=== PATIENT | male | born 1995 | race Caucasian/White ===

== ENCOUNTER 2018-01-22 23:50 | Emergency (ER) | payer MEDICAID, SELFPAY ==
--- NOTE | 2018-01-22 23:50 | DT_ITS ---
This patient was seen during an EMR downtime January 16, 2018 - January 23, 2018. This patient may have a combination of paper and electronic documentation or all paper documentation. All documentation is viewable within the e-chart portion of [facility] [employer] [facility] for each patient visit.
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
== END 2018-01-23 03:11 | disposition home or self-care (01) ==
PROVIDERS: Emergency Provider Emergency Medicine; Family Provider Family Medicine; PCP Family Medicine
DX: S00.11XA Contusion of right eyelid and periocular area, initial encounter (principal); S60.222A Contusion of left hand, initial encounter; R40.2410 Glasgow coma scale score 13-15, unspecified time; W50.0XXA Accidental hit or strike by another person, initial encounter; Y93.89 Activity, other specified; Y92.9 Unspecified place or not applicable; F32.9 Major depressive disorder, single episode, unspecified; R01.1 Cardiac murmur, unspecified; F98.8 Other specified behavioral and emotional disorders with onset usually occurring in childhood and adolescence; F84.0 Autistic disorder; F31.9 Bipolar disorder, unspecified; Z79.899 Other long term (current) drug therapy; Z72.0 Tobacco use
CPT/HCPCS: 70450; 70486; 73130; 99284

== ENCOUNTER 2018-05-08 10:54 | Emergency (ER) | payer MEDICAID, SELFPAY ==
[2018-05-08 10:55] VITALS: BP 142/92; PULSE 88; RESP 12; TEMP 36.6; O2SAT 100; BMI 25.8
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
[2018-05-08] MEDS: Naproxen 500 MG Tablet PO (11:21)
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
[2018-05-08 12:19] VITALS: BP 127/70; PULSE 68; RESP 16; O2SAT 100
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
== END 2018-05-08 13:11 | disposition home or self-care (01) ==
PROVIDERS: Emergency Provider Emergency Medicine; Family Provider Family Medicine; PCP Family Medicine
DX: M62.830 Muscle spasm of back (principal); W19.XXXA Unspecified fall, initial encounter; F31.9 Bipolar disorder, unspecified; Z72.0 Tobacco use
CPT/HCPCS: 72040; 72070; 99283

== ENCOUNTER 2018-05-22 14:00 | Emergency (ER) | payer MEDICAID, SELFPAY ==
[2018-05-22 14:01] VITALS: BP 111/73; PULSE 75; RESP 18; TEMP 36.6; O2SAT 100; BMI 25.0
--- NOTE | 2018-05-22 15:30 | ED.DCSUM_ITS ---
- ER Visit Summary Date of Service: 05/22/18 Chief Complaint: [Soft tissue swelling right scalp] History of Present Illness: The patient is a 22 M [to the emergency department complaint of a soft tissue swelling to the right side of his scalp that he has had for many years. Patient states that feels like may be the swelling is gotten larger recently and last night attempted to drain it while using a razor blade. Patient states that he only got a small amount of blood from it but no purulent drainage. Patient also states that over last couple weeks he has had increasing headaches off and on. Patient not sure if the lump has anything to do with the headaches. Patient denies any head trauma. He denies any recent illness. Patient has not had any fevers.] Physical Examination: [HEENT-PERRLA, EOMI. Cranial nerves II through XII grossly intact. TMs clear. Mucous membranes moist. No adenopathy. Right parietal scalp there is a 1 cm cystic lesion that is freely movable within the scalp. Area slightly tender to palpation. Minimal erythema. There is some dry blood noted to the area where patient attempted incision and drainage. Cardiovascular-regular rate and rhythm without murmur or ectopy Lungs-clear to auscultation, chest wall stable without crepitus or subcu emphysema Abdomen-normoactive bowel sounds, soft, nontender, no rebound or rigidity, no peritoneal signs. Extremities-intact ?4, normal range of motion, normal pulses, atraumatic] Test Results: [None indicated] Emergency Department Course and Treatment: [I discussed possible treatment options with patient including further attempted I&D although I suspect that this is a sebaceous cyst and may recur. The other option would be to place patient on antibiotic and have him follow-up with a surgeon to have complete excision. This point patient is comfortable with antibiotic and follow-up with general surgeon. I feel this is a reasonable option especially since patient has not been able to get any drainage from the wound and it is small at this time.] Treatment Plan: Patient was started on Keflex. [] Disposition: [Discharge to home in stable condition.] Impression: Sebaceous cyst right scalp [] This note was generated with [email or web address] dictation software. It may contain incorrect words, spelling, and punctuation that were not noted in review of the chart prior to signing ED Disposition - Plan for ED Patient: Chief Complaint: Abscess Referrals: Antonio Fuchs MD [Primary Care Provider] -
--- NOTE | 2018-05-22 15:30 | ED.DEP ---
ED Disposition - Plan for ED Patient: Chief Complaint: Abscess Instructions: ED Cyst Sebaceous Infec Abx Tx Prescriptions: Cephalexin [Keflex] 500 mg PO Q6 #40 cap Referrals: Antonio Fuchs MD [Primary Care Provider] - Melvin Valverde MD [STAFF PHYSICIAN] - 3-5 Days
[2018-05-22 15:41] VITALS: BP 108/74; PULSE 66; RESP 15; O2SAT 99
[2018-05-22] MEDS: Cephalexin 250 MG Capsule 500 MG PO (15:41)
== END 2018-05-22 15:42 | disposition home or self-care (01) ==
LOC: ED 15:38
PROVIDERS: Emergency Provider Emergency Medicine; Family Provider Family Medicine; PCP Family Medicine
DX: L72.3 Sebaceous cyst (principal); F12.90 Cannabis use, unspecified, uncomplicated
CPT/HCPCS: 99283

== ENCOUNTER 2018-07-11 08:48 | Day surgery (SDC) | payer MEDICAID, SELFPAY ==
--- NOTE | 2018-07-10 23:32 | PCM.HP.BLA ---
History and Physical Date of Admission: 07/11/18 HISTORY OF PRESENT ILLNESS 22 year old man presents with a soft tissue mass right parietal scalp that had been increasing in size over the last couple of months. This increase in size has been causing him some pain. He denies any fever. He denies any trauma. He recently went to the ED on 05/22/18 because of increasing pain after trying to incise this mass at home with a razor blade. He was placed on Keflex. He presents today for further evaluation and treatment. PAST MEDICAL HISTORY Anxiety and depression (Acute) Back problem (Acute) Frequent headaches (Acute) GERD (gastroesophageal reflux disease) (Acute) PAST SURGICAL HISTORY History of appendectomy (Acute) ALLERGIES No Known Allergies Allergy (Verified 05/31/18 16:28) MEDICATIONS Cyclobenzaprine [Flexeril] 10 mg PO TID PRN #20 tab 05/08/18 [Rx Confirmed 05/22/18] Naproxen [Naprosyn] 500 mg PO BID PRN PRN #20 tab 05/08/18 [Rx Confirmed 05/22/18] Sertraline HCl [Zoloft] 100 mg PO DAILY 05/08/18 [History Confirmed 05/22/18] Cephalexin [Keflex] 500 mg PO Q6 #40 cap 05/22/18 [Rx] FAMILY HISTORY Mother Anxiety and depression Grandmother Cancer Father Depression (emotion) Sister Diabetes SOCIAL HISTORY Smoking Status: Never smoker alcohol intake: never substance use type: does not use additional social history: DOES NOT USE ASPIRIN DOES NOT USE IBUPROFEN REVIEW OF SYSTEMS General - Denies fever, fatigue, and weight loss. Eyes - Denies cataracts and glaucoma. ENT - Denies nasal congestion and sore throat. Endocrine - Denies excessive thirst and urination. Skin - Denies skin cancer. Has painful soft tissue mass right parietal scalp. Musculoskeletal - Denies joint pain and arthritis. Has joint stiffness, weakness of muscles and joints, and back pain. Neuro - Denies headaches. Cardiovascular - Denies chest pain, fatigue, and shortness of breath with exertion. Psych - Denies anxiety. Has depression. Respiratory - Denies chronic cough and shortness of breath. Gastrointestinal - Denies nausea, vomiting, diarrhea, and constipation. Hematologic - Denies abnormal bruising and bleeding. Genitourinary - Denies hematuria and urinary frequency. PHYSICAL EXAMINATION General - Alert and Oriented HEENT - PERRL. EOMI. Throat is clear. On the right parietal scalp is a soft tissue mass that measures 12 mm. Mobile. Slight tenderness to palpation. No evidence of infection. Slight alopecia present. Neck - Supple and nontender. No cervical adenopathy. No suspicious lesions noted. Lungs - Clear to auscultation. Heart - Regular rate and rhythm. Abdomen - Soft and nondistended. Extremities - FROM. No axillary adenopathy. Radial pulses are palpable. No suspicious lesions noted. Neuro - CN II-XII grossly intact. Psych - Normal mood and affect. ASSESSMENT 12 mm painful soft tissue mass right parietal scalp. PLAN Continue the Keflex antibiotics until finished. Recommend excision of this soft tissue mass and send it to Pathology for analysis to rule out carcinoma. If carcinoma is present then further resection will be done with scalp skin flap or skin graft reconstruction. If the lesion appears cystic in nature and if it is adherent to the overlying scalp skin and extra scalp skin is excised, then reconstruction will be with a scalp skin flap or skin graft reconstruction. Surgery will be done under local anesthesia and IV sedation on an outpatient basis. Patient was informed of the risks and complications of the procedure including alternatives to surgery. These were discussed with the patient personally. Patient voices understanding and wishes to proceed. Some of the risks and complications were included in a form from the [employer].
[2018-07-11 09:13] VITALS: BP 133/90; PULSE 73; RESP 16; TEMP 36.4; O2SAT 100; BMI 23.8
--- NOTE | 2018-07-11 10:25 | MASS_PTH ---
PATIENT: NEELIMA LYNNE LOC: [facility] [place] U#:[id number] AGE/SX: 22/M ROOM: RE07/11/[address]: Dr. Melvin Valverde MD : 1995 BED: DIS: 07/11/2018 SPEC #: [id number] RECD: 07/11/18 16:03 STATUS: TERRIE HANNAH #: [id number] [place]: 07/11/18 10:[address]: Melvin Valverde DEPT: SURGICAL PATHOLOGY RECD BY: Paulina Bruce ENTERED: 07/12/18 11:07 SP TYPE: Mass OTHR DR: Dr. Antonio Fuchs MD Tissues: Scalp, NOS Procedures: Surgery Specimen Level III HEADER OPERATION: Excision, 12mm painful soft tissue mass right parietal scalp PRE-OP DIAGNOSIS: Painful soft tissue mass, 12mm, right parietal scalp TISSUE SUBMITTED: Soft tissue mass, right parietal scalp MICROSCOPIC DIAGNOSIS Soft tissue mass, right scalp, excisional biopsy: Trichilemmal cyst with focal calcification. SHANTELLE:reno 07/13/18 MICROSCOPIC DESCRIPTION Slides are reviewed. GROSS DESCRIPTION Received in fixative is one container labeled with the patient's name and designated painful soft tissue mass right parietal scalp. The specimen consists of a piece of levine-white skin with underlying tissue measuring 1.2 x 0.4 cm and up to 0.6 cm in thickness. The specimen is inked, serially sectioned and submitted entirely in one cassette. / SHANTELLE:reno 07/12/18 TC:5 CPT: 44632
[2018-07-11] MEDS: Mupirocin Ointment 22gm Tube 1 APPLIC (12:25)
--- NOTE | 2018-07-11 12:27 | PCM.IMDPSTOP ---
Immediate Post-Op Note Date of Procedure: 07/11/18 Primary Surgeon/Physician: Melvin Valverde mobile application tester: None Pre-Operative Diagnosis: 12 mm painful soft tissue mass right parietal scalp. Post-Operative Diagnosis: Same. Surgery/Procedure Performed:: Excision 12 mm painful soft tissue mass right parietal scalp with 1.2 cm layered closure. Description of Surgical Findings:: 22 year old man presents with a soft tissue mass right parietal scalp that had been increasing in size over the last couple of months. This increase in size has been causing him some pain. He denies any fever. He denies any trauma. He recently went to the ED on 05/22/18 because of increasing pain after trying to incise this mass at home with a razor blade. He was placed on Keflex. Today the patient underwent excision 12 mm painful soft tissue mass right parietal scalp with 1.2 cm layered closure. Estimated Blood Loss: 5 ml. Specimen's removed: Painful soft tissue mass right parietal scalp to Pathology. Drains: None. Type of Anesthesia:: Local MAC - xylocaine with epinephrine. - Admit VTE Documentation VTE Present on Admission: No VTE Mechan Device Prophylaxis: SCD's VTE Pharm Prophylaxis ordered?: No
--- NOTE | 2018-07-11 12:33 | PCM.DC ---
You will use the following diet at home:: No restrictions Discharge Activity: May not drive while taking narcotic pain medications., - - keep head elevated. no heavy lifting. May shower in (days): 2 May resume sexual activity in: No Restrictions Weight Bearing Status: Weight bearing as tolerated Lifting Restrictions: 20 lbs. Keep extremity elevated above heart level: - - elevate head. Call your doctor if your incision/area has: Continuous Slow Oozing, Sudden Increased Bleeding, Increased Pain/ Swelling, Increased Redness, Foul Smelling Discharge, Swelling at the incision site Call your doctor if you observe: Fever of 101 or Higher, Coldness, Increased Pain, Shortness of breath, Chest pain, Calf discomfort, Uncontrolled pain Suture Line Care: - - apply antibiotic ointment to suture line daily. Allergies/Adverse Reactions: Allergies No Known Allergies Allergy (Verified 07/04/18 10:26) Medications to take at Discharge Sertraline HCl [Zoloft] 100 mg PO DAILY 05/08/18 Clindamycin HCl [Cleocin HCl] 300 mg PO TID #15 cap 07/11/18 Oxycodone HCl/Acetaminophen [Percocet 5/325] 1 tab PO 4X/DAY PRN PRN 4 Days #15 tab 07/11/18 The following prescriptions were given: Oxycodone HCl/Acetaminophen [Percocet 5/325] 1 tab PO 4X/DAY PRN PRN 4 Days #15 tab PRN Reason: Pain Clindamycin HCl [Cleocin HCl] 300 mg PO TID #15 cap Primary Care Physician: Antonio Fuchs MD [Primary Care Provider] - Test Results: Test results from this visit will be discussed in further detail at your follow-up appointment, if applicable. Please Follow Up With: Melvin Valverde MD When: one week. call [phone] for appt. Proposed Discharge Date: 07/11/18
--- NOTE | 2018-07-11 12:36 | DCINST_ITS ---
You will use the following diet at home:: No restrictions Discharge Activity: May not drive while taking narcotic pain medications., - - keep head elevated. no heavy lifting. May shower in (days): 2 May resume sexual activity in: No Restrictions Weight Bearing Status: Weight bearing as tolerated Lifting Restrictions: 20 lbs. Keep extremity elevated above heart level: - - elevate head. Call your doctor if your incision/area has: Continuous Slow Oozing, Sudden Increased Bleeding, Increased Pain/ Swelling, Increased Redness, Foul Smelling Discharge, Swelling at the incision site Call your doctor if you observe: Fever of 101 or Higher, Coldness, Increased Pain, Shortness of breath, Chest pain, Calf discomfort, Uncontrolled pain Suture Line Care: - - apply antibiotic ointment to suture line daily. Allergies/Adverse Reactions: Allergies No Known Allergies Allergy (Verified 07/04/18 10:26) Medications to take at Discharge Sertraline HCl [Zoloft] 100 mg PO DAILY 05/08/18 Clindamycin HCl [Cleocin HCl] 300 mg PO TID #15 cap 07/11/18 Oxycodone HCl/Acetaminophen [Percocet 5/325] 1 tab PO 4X/DAY PRN PRN 4 Days #15 tab 07/11/18 The following prescriptions were given: Oxycodone HCl/Acetaminophen [Percocet 5/325] 1 tab PO 4X/DAY PRN PRN 4 Days #15 tab PRN Reason: Pain Clindamycin HCl [Cleocin HCl] 300 mg PO TID #15 cap Primary Care Physician: Antonio Fuchs MD [Primary Care Provider] - Test Results: Test results from this visit will be discussed in further detail at your follow- up appointment, if applicable. Please Follow Up With: Melvin Valverde MD When: one week. call [phone] for appt. Proposed Discharge Date: 07/11/18
[2018-07-11 12:39] VITALS: BP 106/56; BP 133/90; PULSE 68; RESP 15; TEMP 36.6; O2SAT 96
[2018-07-11 12:44] VITALS: BP 110/66; BP 133/90; PULSE 66; RESP 16; O2SAT 98
[2018-07-11 12:49] VITALS: BP 106/50; BP 133/90; PULSE 65; RESP 16; O2SAT 97
[2018-07-11 12:54] VITALS: BP 107/59; BP 133/90; PULSE 66; RESP 16; TEMP 36.6; O2SAT 99
[2018-07-11 13:31] VITALS: BP 133/90
--- NOTE | 2018-07-11 20:40 | PCM.OPRPT ---
Report of Operation Date of Procedure: 07/11/18 Pre-Operative Diagnosis: 12 mm painful soft tissue mass right parietal scalp. Post-Operative Diagnosis: Same. Surgery/Procedure Performed:: Excision 12 mm painful soft tissue mass right parietal scalp with 1.2 cm layered closure. Description of Surgical Findings:: 22 year old man presents with a soft tissue mass right parietal scalp that had been increasing in size over the last couple of months. This increase in size has been causing him some pain. He denies any fever. He denies any trauma. He recently went to the ED on 05/22/18 because of increasing pain after trying to incise this mass at home with a razor blade. He was placed on Keflex. Patient was informed of the risks and complications of the procedure including alternatives to surgery. These were discussed with the patient personally. Patient voices understanding and wishes to proceed. Some of the risks and complications were included in a form from the [employer]. insulation helper: None Type of Anesthesia:: Local MAC - xylocaine with epinephrine. Specimen's removed: Painful soft tissue mass right parietal scalp to Pathology. Drains: None. Estimated Blood Loss (mL): 5 ml. Description of Procedure: Patient was taken to OR in supine position and was given IV sedation. The right parietal scalp was prepped and draped in the usual fashion. SCD's were placed for DVT prophylaxis. Perioperative antibiotics were given intravenously. The mass right parietal scalp was infiltrated with xylocaine and epinephrine. After waiting 5 minutes for the anesthetic to take effect, an oblique elliptical incision was made over the mass down into the subcutaneous tissue. A lot of scar tissue was present that was also excised with the mass. The mass was well encapsulated. It was dissected off the muscular fascia. The mass was sent to Pathology for analysis to rule out carcinoma. Hemostasis was obtained with electrocautery. The wound was closed in a layered fashion with 4-0 Monocryl interrupted sutures for the deep dermis and subcutaneous tissue. The scalp skin was approximated with 4-0 Monocryl simple interrupted sutures. The length of the layered closure was 1.2 cm. Antibiotic ointment was applied to the suture line. Patient tolerated the procedure well and was sent to PACU in satisfactory condition. Patient will be sent home on antibiotics and pain medication. Patient will keep his head elevated during the initial postoperative period. Patient will followup in a week for a wound check and for discussion of the pathology report and for removal of the sutures. Grafts/Implants Used: None. - Complications None. - Admit VTE Documentation VTE Present on Admission: No VTE Mechan Device Prophylaxis: SCD's VTE Pharm Prophylaxis ordered?: No Code Visit Surgery Charges CPT - 14850 ICD-10 - R22.0, R20.8 69446 R22.0, R20.8
--- NOTE | 2018-07-12 15:10 | OP.PCM_ITS ---
Report of Operation Date of Procedure: 07/11/18 Pre-Operative Diagnosis: 12 mm painful soft tissue mass right parietal scalp. Post-Operative Diagnosis: Same. Surgery/Procedure Performed:: Excision 12 mm painful soft tissue mass right parietal scalp with 1.2 cm layered closure. Description of Surgical Findings:: 22 year old man presents with a soft tissue mass right parietal scalp that had been increasing in size over the last couple of months. This increase in size has been causing him some pain. He denies any fever. He denies any trauma. He recently went to the ED on 05/22/18 because of increasing pain after trying to incise this mass at home with a razor blade. He was placed on Keflex. Patient was informed of the risks and complications of the procedure including alternatives to surgery. These were discussed with the patient personally. Patient voices understanding and wishes to proceed. Some of the risks and complications were included in a form from the [employer]. foreign car mechanic: None Type of Anesthesia:: Local MAC - xylocaine with epinephrine. Specimen's removed: Painful soft tissue mass right parietal scalp to Pathology. Drains: None. Estimated Blood Loss (mL): 5 ml. Description of Procedure: Patient was taken to OR in supine position and was given IV sedation. The right parietal scalp was prepped and draped in the usual fashion. SCD's were placed for DVT prophylaxis. Perioperative antibiotics were given intravenously. The mass right parietal scalp was infiltrated with xylocaine and epinephrine. After waiting 5 minutes for the anesthetic to take effect, an oblique elliptical incision was made over the mass down into the subcutaneous tissue. A lot of scar tissue was present that was also excised with the mass. The mass was well encapsulated. It was dissected off the muscular fascia. The mass was sent to Pathology for analysis to rule out carcinoma. Hemostasis was obtained with electrocautery. The wound was closed in a layered fashion with 4-0 Monocryl interrupted sutures for the deep dermis and subcutaneous tissue. The scalp skin was approximated with 4-0 Monocryl simple interrupted sutures. The length of the layered closure was 1.2 cm. Antibiotic ointment was applied to the suture line. Patient tolerated the procedure well and was sent to PACU in satisfactory condition. Patient will be sent home on antibiotics and pain medication. Patient will keep his head elevated during the initial postoperative period. Patient will followup in a week for a wound check and for discussion of the pathology report and for removal of the sutures. Grafts/Implants Used: None. - Complications None. - Admit VTE Documentation VTE Present on Admission: No VTE Mechan Device Prophylaxis: SCD's VTE Pharm Prophylaxis ordered?: No Code Visit Surgery Charges CPT - 37004 ICD-10 - R22.0, R20.8 99347 R22.0, R20.8
--- OUTSIDE RECORDS SUMMARY | 2018-08-22 21:39 | XMS RPT_ITS ---
:1995 Author Organization OHIP Support Name Relationship Address Phone GUERALEIGHTON Unavailable [address] + [place] [address] UE Unavailable Unavailable Unavailable LEIGHTON LYNNE Unavailable [address] + [place] [address] UE Unavailable Unavailable Unavailable LEIGHTON LYNNE Unavailable [address] + [place] [address] UE Unavailable Unavailable Unavailable LEIGHTON LYNNE Unavailable [address] + [place] [address] UE Unavailable Unavailable Unavailable LEIGHTON LYNNE Unavailable [address] + [place] [address] UE Unavailable Unavailable Unavailable LEIGHTON LYNNE Unavailable [address] + [place] [address] UE Unavailable Unavailable Unavailable LEIGHTON LYNNE Unavailable [address] + [place] [address] UE Unavailable Unavailable Unavailable Child Unavailable Unavailable Unavailable Rula Broussard Unavailable [address] + [place] [address] UN Unavailable Unavailable Unavailable LEIGHTON LYNNE Unavailable [address] + [place] [address] UE Unavailable Unavailable Unavailable LEIGHTON LYNNE Unavailable [address] + [place] [address] UE Unavailable Unavailable Unavailable Care Team Providers Name Role Phone Primay Care Physicia, No Primary Care Unavailable Phil Samuels Attending Unavailable Chinedu Bingham Attending Unavailable Chinedu Bingham Referring Unavailable Bursley, Antonio Primary Care Unavailable Elidaley, Antonio Primary Care Unavailable Jackelin Franco Attending Unavailable Bursley, Antonio Primary Care Unavailable Tanner Ortiz Attending Unavailable Melvin Valverde Attending Unavailable Shila Antonio Referring Unavailable Melvin Valverde Attending Unavailable Louisy, Melvin Referring Unavailable Shila, Antonio Primary Care Unavailable Louisy, Melvin Attending Unavailable Nicolle, Melvin Referring Unavailable Shila, Antonio Primary Care Unavailable Nicolle, Melvin Consulting Unavailable Slaby, Melvin Attending Unavailable Shila, Antonio Primary Care Unavailable Slaby, Melvin Consulting Unavailable Shila Antonio Referring Unavailable Slaby, Melvin Attending Unavailable Shila, Antonio Referring Unavailable LAURENCE VICENTE (BLAST HOLE DRILLER) Attending Unavailable LAURENCE VICENTE (BLAST HOLE DRILLER) Attending Unavailable LAURENCE VICENTE (BLAST HOLE DRILLER) Referring Unavailable RONDA FUCHS () Attending Unavailable RONDA FUCHS () Referring Unavailable Cale Umanzor Attending Unavailable PROBLEMS PROBLEMS DATE TYPE CONDITION / CODE ATTENDING STATUS SOURCE 07/25/2018 Unknown G89.18 - Other acute Louismiranda Melvin Active [place] postprocedural pain [facility] / G89.18(ICD-10) Hospital Repository 07/25/2018 Unknown R22.0 - Localized Melvin Valverde Active [place] swelling, mass and Community lump, head / Hospital R22.0(ICD-10) Repository 04/10/2018 Active Encounter for NA Active [facility] Main medical examination [place] without abnormal Repository findings / Z00.00(ICD-10) 02/10/2018 Unknown R51 - Headache / Zachery, Chinedu Active [place] R51(ICD-10) [facility] PROCEDURES PROCEDURES No Procedure Records FoundRESULTS RESULTS PLASTIC SURGERY Observed: 07/28/2018 Status: F Source: NECHE VISIT REPORT 6:49 PM [facility] REPOSIT[facility]astic AND Reconstructive Surgery [address] [place] [address] OFFICE VISIT Date of Service: 07/20/18 MR#: [id number] Acct: [id number] Name: GUERANEELIMA D Rep #: [id number] : 1995 Provider: Melvin Valverde MD Age/Sex: 23/M Location: [facility] Status: Signed Intake Vital Signs07/20/18 Body Mass Index (BMI) 23.8 07/20/18 Blood Pressure 128/76 H H 07/20/18 Blood Pressure Location Lt brachial 07/20/18 Blood Pressure Position Sitting 07/20/18 Respiratory Rate 16 Intake Visit Reasons: post op surgery 07/11/18 Tool And Die Machinist Required: No Accompanied by: None Is patient in pain?: No Allergies No Known Allergies Allergy (Verified 07/20/18 15:53) Medications Sertraline HCl [Zoloft] 100 mg PO DAILY 05/08/18 [History Confirmed 07/04/18] PFSH Medical History Anxiety and depression (Acute) Back problem (Acute) Frequent headaches (Acute) GERD (gastroesophageal reflux disease) (Acute) Surgical History History of appendectomy (Acute) Family History Mother Anxiety and depression Grandmother Cancer Father Depression (emotion) Sister Diabetes Social History Smoking Status: Never smoker alcohol intake: never substance use type: does not use additional social history: DOES NOT USE ASPIRIN DOES NOT USE IBUPROFEN HPI post op surgery 07/11/18: Details: Postop visit from his recent surgery on 07/11/18 where he underwent excision 12 mm painful soft tissue mass right parietal scalp with 1.2 cm layered closure. Patient is doing well. He denies any complaints of pain. His incision is dry and intact. Pathology discussed with patient. 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 Encouraged patient to massage incision daily. Discussed with patient that if the mass were to recur in the scar, then he would need to have it evaluated for re-excision with a margin and possible skin graft reconstruction. Sometimes recurrent trichilemmal cysts can harbor a focus of carcinoma. Patient verbalized understanding. Follow up on an as needed basis. Assessment AND Plan Problems 1. 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 Dysesthesia of scalp R20.8 07/26/18 181 <Electronically signed by Melvin Valverde MD> Date Melvin Valverde MD 07/28/18 713<Electronically signed by Claudine JACKSON> Cosigner Signature: Date (if applicable) Claudine Martinez SALAD BAR CLERK-C CC: OPERATIVE REPORT Observed: 07/20/2018 Status: F Source: NECHE 12:04 PM [facility] REPOSITORY [facility] Medical Records Department [address] [place] [address] Operative Report 07/11/182039 MR#: [id number] Acct: [id number] Name: NEELIMA LYNNE Rep #: [id number] : 1995 22 From: Melvin Valverde MD PCP: Antonio Fuchs MD Status: DEP [facility] [place] Location: [facility] Report of Operation Date of Procedure: 07/11/18 Pre-Operative Diagnosis: 12 mm painful soft tissue mass right parietal scalp. Post-Operative Diagnosis: Same. Surgery/Procedure Performed:: Excision 12 mm painful soft tissue mass right parietal scalp with 1.2 cm layered closure. Description of Surgical Findings:: 22 year old man presents with a soft tissue mass right parietal scalp that had been increasing in size over the last couple of months. This increase in size has been causing him some pain. He denies any fever. He denies any trauma. He recently went to the ED on 05/22/18 because of increasing pain after trying to incise this mass at home with a razor blade. He was placed on Keflex. Patient was informed of the risks and complications of the procedure including alternatives to surgery. These were discussed with the patient personally. Patient voices understanding and wishes to proceed. Some of the risks and complications were included in a form from the [place]. job coach: None Type of Anesthesia:: Local MAC - xylocaine with epinephrine. Specimen's removed: Painful soft tissue mass right parietal scalp to Pathology. Drains: None. Estimated Blood Loss (mL): 5 ml. Description of Procedure: Patient was taken to OR in supine position and was given IV sedation. The right parietal scalp was prepped and draped in the usual fashion. SCD's were placed for DVT prophylaxis. Perioperative antibiotics were given intravenously. The mass right parietal scalp was infiltrated with xylocaine and epinephrine. After waiting 5 minutes for the anesthetic to take effect, an oblique elliptical incision was made over the mass down into the subcutaneous tissue. A lot of scar tissue was present that was also excised with the mass. The mass was well encapsulated. It was dissected off the muscular fascia. The mass was sent to Pathology for analysis to rule out carcinoma. Hemostasis was obtained with electrocautery. The wound was closed in a layered fashion with 4-0 Monocryl interrupted sutures for the deep dermis and subcutaneous tissue. The scalp skin was approximated with 4-0 Monocryl simple interrupted sutures. The length of the layered closure was 1.2 cm. Antibiotic ointment was applied to the suture line. Patient tolerated the procedure well and was sent to PACU in satisfactory condition. Patient will be sent home on antibiotics and pain medication. Patient will keep his head elevated during the initial postoperative period. Patient will followup in a week for a wound check and for discussion of the pathology report and for removal of the sutures. Grafts/Implants Used: None. - Complications None. - Admit VTE Documentation VTE Present on Admission: No VTE Mechan Device Prophylaxis: SCD's VTE Pharm Prophylaxis ordered?: No Code Visit Surgery Charges CPT - 74173 ICD-10 - R22.0, R20.8 48462 R22.0, R20.8 07/20/18 1204 <Electronically signed by Melvin Valverde MD> Date Melvin Valverde MD CC: Antonio Fuchs MD; Melvin Valverde MD Signed HISTORY AND PHYSICAL Observed: 2018 Status: F Source: NECHE EXAM 11:58 PM [facility] REPOSIT[facility] Medical Records Department [address] [place] [id number] History and Physical 07/10/18 2332 MR#: [id number] Acct: [id number] Name: NEELIMA LYNNE Rep #: [id number] : 1995 22 From: Melvin Valverde MD PCP: Antonio Fuchs MD Status: DEP [facility] Y Location: [facility] History and Physical Date of Admission: 07/11/18 HISTORY OF PRESENT ILLNESS 22 year old man presents with a soft tissue mass right parietal scalp that had been increasing in size over the last couple of months. This increase in size has been causing him some pain. He denies any fever. He denies any trauma. He recently went to the ED on 05/22/18 because of increasing pain after trying to incise this mass at home with a razor blade. He was placed on Keflex. He presents today for further evaluation and treatment. PAST MEDICAL HISTORY Anxiety and depression (Acute) Back problem (Acute) Frequent headaches (Acute) GERD (gastroesophageal reflux disease) (Acute) PAST SURGICAL HISTORY History of appendectomy (Acute) ALLERGIES No Known Allergies Allergy (Verified 05/31/18 16:28) MEDICATIONS Cyclobenzaprine [Flexeril] 10 mg PO TID PRN #20 tab 05/08/18 [Rx Confirmed 05/22/18] Naproxen [Naprosyn] 500 mg PO BID PRN PRN #20 tab 05/08/18 [Rx Confirmed 05/22/18] Sertraline HCl [Zoloft] 100 mg PO DAILY 05/08/18 [History Confirmed 05/22/18] Cephalexin [Keflex] 500 mg PO Q6 #40 cap 05/22/18 [Rx] FAMILY HISTORY Mother Anxiety and depression Grandmother Cancer Father Depression (emotion) Sister Diabetes SOCIAL HISTORY Smoking Status: Never smoker alcohol intake: never substance use type: does not use additional social history: DOES NOT USE ASPIRIN DOES NOT USE IBUPROFEN REVIEW OF SYSTEMS General - Denies fever, fatigue, and weight loss. Eyes - Denies cataracts and glaucoma. ENT - Denies nasal congestion and sore throat. Endocrine - Denies excessive thirst and urination. Skin - Denies skin cancer. Has painful soft tissue mass right parietal scalp. Musculoskeletal - Denies joint pain and arthritis. Has joint stiffness, weakness of muscles and joints, and back pain. Neuro - Denies headaches. Cardiovascular - Denies chest pain, fatigue, and shortness of breath with exertion. Psych - Denies anxiety. Has depression. Respiratory - Denies chronic cough and shortness of breath. Gastrointestinal - Denies nausea, vomiting, diarrhea, and constipation. Hematologic - Denies abnormal bruising and bleeding. Genitourinary - Denies hematuria and urinary frequency. PHYSICAL EXAMINATION General - Alert and Oriented HEENT - PERRL. EOMI. Throat is clear. On the right parietal scalp is a soft tissue mass that measures 12 mm. Mobile. Slight tenderness to palpation. No evidence of infection. Slight alopecia present. Neck - Supple and nontender. No cervical adenopathy. No suspicious lesions noted. Lungs - Clear to auscultation. Heart - Regular rate and rhythm. Abdomen - Soft and nondistended. Extremities - FROM. No axillary adenopathy. Radial pulses are palpable. No suspicious lesions noted. Neuro - CN II-XII grossly intact. Psych - Normal mood and affect. ASSESSMENT 12 mm painful soft tissue mass right parietal scalp. PLAN Continue the Keflex antibiotics until finished. Recommend excision of this soft tissue mass and send it to Pathology for analysis to rule out carcinoma. If carcinoma is present then further resection will be done with scalp skin flap or skin graft reconstruction. If the lesion appears cystic in nature and if it is adherent to the overlying scalp skin and extra scalp skin is excised, then reconstruction will be with a scalp skin flap or skin graft reconstruction. Surgery will be done under local anesthesia and IV sedation on an outpatient basis. Patient was informed of the risks and complications of the procedure including alternatives to surgery. These were discussed with the patient personally. Patient voices understanding and wishes to proceed. Some of the risks and complications were included in a form from the [place] [employer]. 07/12/18 8688 <Electronically signed by Melvin Valverde MD> Date Melvin Valverde MD Cosigner Signature: Date (if applicable) CC: Antonio Fuchs MD; Melvin Valverde MD Signed DISCHARGE INSTRUCTION Observed: 07/11/2018 Status: F Source: NECHE 12:36 PM [facility] RE[facility]IT[facility] Medical Records Department [address] [place] [address] Instructions for Home/Discharge Instructions 07/11/18 1233 MR#: [id number] Acct: [id number] Name: NEELIMA LYNNE Rep #: [id number] : 1995 22 From: Melvin Valverde MD PCP: Antonio Fuchs MD Status: REG [facility] You will use the following diet at home:: No restrictions Discharge Activity: May not drive while taking narcotic pain medications., - - keep head elevated. no heavy lifting. May shower in (days): 2 May resume sexual activity in: No Restrictions Weight Bearing Status: Weight bearing as tolerated Lifting Restrictions: 20 lbs. Keep extremity elevated above heart level: - - elevate head. Call your doctor if your incision/area has: Continuous Slow Oozing, Sudden Increased Bleeding, Increased Pain/ Swelling, Increased Redness, Foul Smelling Discharge, Swelling at the incision site Call your doctor if you observe: Fever of 101 or Higher, Coldness, Increased Pain, Shortness of breath, Chest pain, Calf discomfort, Uncontrolled pain Suture Line Care: - - apply antibiotic ointment to suture line daily. Allergies/Adverse Reactions: Allergies No Known Allergies Allergy (Verified 07/04/18 10:26) Medications to take at Discharge Sertraline HCl [Zoloft] 100 mg PO DAILY 05/08/18 Clindamycin HCl [Cleocin HCl] 300 mg PO TID #15 cap 07/11/18 Oxycodone HCl/Acetaminophen [Percocet 5/325] 1 tab PO 4X/DAY PRN PRN 4 Days #15 tab 07/11/18 The following prescriptions were given: Oxycodone HCl/Acetaminophen [Percocet 5/325] 1 tab PO 4X/DAY PRN PRN 4 Days #15 tab PRN Reason: Pain Clindamycin HCl [Cleocin HCl] 300 mg PO TID #15 cap Primary Care Physician: Antonio Fuchs MD [Primary Care Provider] - Test Results: Test results from this visit will be discussed in further detail at your follow-up appointment, if applicable. Please Follow Up With: Melvin Valverde MD When: one week. call [phone] for appt. Proposed Discharge Date: 07/11/18 07/11/18 1236 <Electronically signed by Melvin Valverde MD> Date Melvin Valverde MD CC: Antonio Fuchs MD MASS (DEFINE AREA) Observed: 07/11/2018 Status: F Source: JAYLON 10:25 AM [facility] REPOSIT[facility] Patient: NEELIMA LYNNE : 1995 (23/M) Acct Num: [id number] Phys: Nicolle LABOY,Melvin Unit Num: [id number] Loc: [facility] Specimen: [id number] Received: 07/11/18 1603 Spec Type: Mass TISSUES 1 TISSUES: Scalp, NOS GROSS DESCRIPTION Received in fixative is one container labeled with the patient's name and designated painful soft tissue mass right parietal scalp. The specimen consists of a piece of levine-white skin with underlying tissue measuring 1.2 x 0.4 cm and up to 0.6 cm in thickness. The specimen is inked, serially sectioned and submitted entirely in one cassette. / SJ:reno 07/12/18 TC:5 CPT: 27751 HEADER OPERATION: Excision, 12mm painful soft tissue mass right parietal scalp PRE-OP DIAGNOSIS: Painful soft tissue mass, 12mm, right parietal scalp TISSUE SUBMITTED: Soft tissue mass, right parietal scalp MICROSCOPIC DESCRIPTION Slides are reviewed. MICROSCOPIC DIAGNOSIS Soft tissue mass, right scalp, excisional biopsy: Trichilemmal cyst with focal calcification. SJ:reno 07/13/18 Signed Cedrick Galvan 07/13/18 <signature on file> Performed By: #### PMASS #### [facility] [address] [place] [address]. [place], [place], [id number] PLASTIC SURGERY Observed: 06/04/2018 Status: F Source: NECHE VISIT REPORT 4:54 PM [facility] REPOSIT[facility] [place] [facility] [address] [place] [address] OFFICE VISIT Date of Service: 05/31/18 MR#: [id number] Acct: [id number] Name: NEELIMA LYNNE Rep #: [id number] : 1995 Provider: Melvin Valverde MD Age/Sex: 22/M Location: [facility] Status: Signed Intake Vital Signs05/31/18 Height 5 ft 8 in 05/31/18 Weight: 167 lb 6 oz Intake Visit Reasons: evaluation soft tissue mass right parietal scalp Tool And Die Machinist Required: No Accompanied by: None Is patient in pain?: No Allergies No Known Allergies Allergy (Verified 05/31/18 16:28) Medications Cyclobenzaprine [Flexeril] 10 mg PO TID PRN #20 tab 05/08/18 [Rx Confirmed 05/22/18] Naproxen [Naprosyn] 500 mg PO BID PRN PRN #20 tab 05/08/18 [Rx Confirmed 05/22/18] Sertraline HCl [Zoloft] 100 mg PO DAILY 05/08/18 [History Confirmed 05/22/18] Cephalexin [Keflex] 500 mg PO Q6 #40 cap 05/22/18 [Rx] PFSH Medical History Anxiety and depression (Acute) Back problem (Acute) Frequent headaches (Acute) GERD (gastroesophageal reflux disease) (Acute) Surgical History History of appendectomy (Acute) Family History Mother Anxiety and depression Grandmother Cancer Father Depression (emotion) Sister Diabetes Social History Smoking Status: Never smoker alcohol intake: never substance use type: does not use additional social history: DOES NOT USE ASPIRIN DOES NOT USE IBUPROFEN HPI evaluation soft tissue mass right parietal scalp: Details: HISTORY OF PRESENT ILLNESS 22 year old man presents with a soft tissue mass right parietal scalp that had been increasing in size over the last couple of months. This increase in size has been causing him some pain. He denies any fever. He denies any trauma. He recently went to the ED on 05/22/18 because of increasing pain after trying to incise this mass at home with a razor blade. He was placed on Keflex. He presents today for further evaluation and treatment. REVIEW OF SYSTEMS General - Denies fever, fatigue, and weight loss. Eyes - Denies cataracts and glaucoma. ENT - Denies nasal congestion and sore throat. Endocrine - Denies excessive thirst and urination. Skin - Denies skin cancer. Has painful soft tissue mass right parietal scalp. Musculoskeletal - Denies joint pain and arthritis. Has joint stiffness, weakness of muscles and joints, and back pain. Neuro - Denies headaches. Cardiovascular - Denies chest pain, fatigue, and shortness of breath with exertion. Psych - Denies anxiety. Has depression. Respiratory - Denies chronic cough and shortness of breath. Gastrointestinal - Denies nausea, vomiting, diarrhea, and constipation. Hematologic - Denies abnormal bruising and bleeding. Genitourinary - Denies hematuria and urinary frequency. PHYSICAL EXAMINATION General - Alert and Oriented HEENT - PERRL. EOMI. Throat is clear. On the right parietal scalp is a soft tissue mass that measures 12 mm. Mobile. Slight tenderness to palpation. No evidence of infection. Slight alopecia present. Neck - Supple and nontender. No cervical adenopathy. No suspicious lesions noted. Lungs - Clear to auscultation. Heart - Regular rate and rhythm. Abdomen - Soft and nondistended. Extremities - FROM. No axillary adenopathy. Radial pulses are palpable. No suspicious lesions noted. Neuro - CN II-XII grossly intact. Psych - Normal mood and affect. ASSESSMENT 12 mm painful soft tissue mass right parietal scalp. PLAN Continue the Keflex antibiotics until finished. Recommend excision of this soft tissue mass and send it to Pathology for analysis to rule out carcinoma. If carcinoma is present then further resection will be done with scalp skin flap or skin graft reconstruction. If the lesion appears cystic in nature and if it is adherent to the overlying scalp skin and extra scalp skin is excised, then reconstruction will be with a scalp skin flap or skin graft reconstruction. Surgery will be done under local anesthesia and IV sedation on an outpatient basis. Patient was informed of the risks and complications of the procedure including alternatives to surgery. These were discussed with the patient personally. Patient voices understanding and wishes to proceed. Some of the risks and complications were included in a form from the [place] [employer]. Assessment AND Plan Problems 1. Localized swelling, mass and lump, head R22.0 2. Dysesthesia of scalp R20.8 Coding Level of Care Code Off vis,new,level 3 Diagnoses Localized swelling, mass and lump, head R22.0 Dysesthesia of scalp R20.8 06/04/18 1175 <Electronically signed by Melvin Valverde MD> Date Melvin Valverde MD Cosigner Signature: Date (if applicable) CC: Antonio Fuchs MD DISCHARGE INSTRUCTION Observed: 05/22/2018 Status: F Source: JAYLON 3:32 PM [facility] RE[facility] Medical Records Department [address] [place] [address] Discharge Instruction 05/22/18 1530 MR#: [id number] Acct: [id number] Name: NEELIMA LYNNE Robel Rep #: [id number] : 1995 22 From: Tanner Ortiz DO PCP: Antonio Fuchs MD Status: PRE ER ED Disposition - Plan for ED Patient: Chief Complaint: Abscess Instructions: ED Cyst Sebaceous Infec Abx Tx Prescriptions: Cephalexin [Keflex] 500 mg PO Q6 #40 cap Referrals: Antonio Fuchs MD [Primary Care Provider] - Melvin Valverde MD [STAFF PHYSICIAN] - 3-5 Days What to do if you have Problems For any increased pain, shortness of breath, bleeding, nausea or vomiting, chest pain, or any unexpected problems, contact your Primary Care Provider. Call [facility] ([phone]) or report to the closest Emergency Room. Call 911 if necessary. 05/22/18 1532 <Electronically signed by Tanner Ortiz DO> Date Tanner Ortiz DO Cosigner Signature (If Indicated): Date CC: Antonio Fuchs MD EMERGENCY DEPARTMENT Observed: 05/22/2018 Status: F Source: NECHE SUMMARY 3:31 PM [facility] Medical Records Department [address] [place] [address] Emergency Department Summary 05/22/18 1527 MR#: [id number] Acct: [id number] Name: LYNNE,NEELIMA D Rep #: [id number] : 1995 22 From: Tanner Ortiz DO PCP: Antonio Fuchs MD Status: PRE ER - ER Visit Summary Date of Service: 05/22/18 Chief Complaint: [Soft tissue swelling right scalp] History of Present Illness: The patient is a 22 M [to the emergency department complaint of a soft tissue swelling to the right side of his scalp that he has had for many years. Patient states that feels like may be the swelling is gotten larger recently and last night attempted to drain it while using a razor blade. Patient states that he only got a small amount of blood from it but no purulent drainage. Patient also states that over last couple weeks he has had increasing headaches off and on. Patient not sure if the lump has anything to do with the headaches. Patient denies any head trauma. He denies any recent illness. Patient has not had any fevers.] Physical Examination: [HEENT-PERRLA, EOMI. Cranial nerves II through XII grossly intact. TMs clear. Mucous membranes moist. No adenopathy. Right parietal scalp there is a 1 cm cystic lesion that is freely movable within the scalp. Area slightly tender to palpation. Minimal erythema. There is some dry blood noted to the area where patient attempted incision and drainage. Cardiovascular-regular rate and rhythm without murmur or ectopy Lungs-clear to auscultation, chest wall stable without crepitus or subcu emphysema Abdomen-normoactive bowel sounds, soft, nontender, no rebound or rigidity, no peritoneal signs. Extremities-intact 4, normal range of motion, normal pulses, atraumatic] Test Results: [None indicated] Emergency Department Course and Treatment: [I discussed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 [id number] Date:[id number] [address] [place] [address]UH: 03/25/2018 Secondary Not GivenUNK [facility] Insurance:Self [facility]: Repository Effective Date:2018-03-25 01/22/2018 NEELIMA D Primary NEELIMA D [place] [id number] Insurance:CARESOURCEP KINNEYDOB: [facility] Number: [id number], [place] [id number] Repository [address]Iwl: (330) Date:2018-01-22P O [phone] () [address]ATTN: [place] [address]LL: 01/22/2018 Secondary NOT GIVENUNK [place] Insurance:SELF PAY [facility] Number: Effective Repository Date:2018-01-22 09/06/2017 NEELIMA D Primary NEELIMA D [place] [id number] Insurance:CARESOURCEP KINNEYDOB: [facility] Number: [id number] [place], [place] [id number] Repository 14[address]Dhy: (330) Date:2017-09-06P O [phone] (HP) [address]ATTN: [place] [address]LX: 09/06/2017 Secondary NOT GIVENUNK [place]lon Insurance:SELF PAY [facility] Number: Effective Repository Date:2017-09-06
== END 2018-07-11 13:46 | disposition home or self-care (01) ==
LOC: SDC 08:49 → AC 08:50
PROVIDERS: Family Provider Family Medicine; PCP Family Medicine; Referring Provider Surgery; Visit Provider Surgery
PROC: (CPT 11422; principal; 2018-07-11 10:10)
DX: L72.12 Trichodermal cyst (principal); F41.9 Anxiety disorder, unspecified; F32.9 Major depressive disorder, single episode, unspecified; F90.9 Attention-deficit hyperactivity disorder, unspecified type; F43.10 Post-traumatic stress disorder, unspecified; Z79.899 Other long term (current) drug therapy
CPT/HCPCS: 00300; 11422; 12031; 88304; 88305; J7120; J2405

== ENCOUNTER 2019-06-02 16:58 | Emergency (ER) | payer MEDICAID, SELFPAY ==
[2018-07-20 15:54] VITALS: BMI 23.8
[2019-06-02 16:58] VITALS: BP 122/72; PULSE 69; RESP 15; TEMP 36.6; O2SAT 99; BMI 22.6
--- NOTE | 2019-06-02 17:20 | CT_ITS ---
STUDY: CT BRAIN WITHOUT CONTRAST REASON FOR EXAM: Male, 23 years old. Headache RADIATION DOSAGE (If Supplied By Facility): CTDIvol = ( 44.99 ) mGy, DLP = ( 796.11 ) mGycm TECHNIQUE: Transaxial CT imaging of the brain was performed without administration of intravenous contrast material. Individualized dose optimization techniques were used for this CT. COMPARISON: 01/23/2018 FINDINGS: There is no acute bleed or infarct. There are normal white matter tracts. The ventricles are normal in configuration. There is no hydrocephalus. The visualized paranasal sinuses are clear. The mastoid air cells are well aerated. There is no skull fracture. CT/Brain/Head without Contrast IMPRESSION: No acute intracranial abnormality. Electronically Signed: Missael Hall, at 17:54 EDT Tel , Service support ,
--- NOTE | 2019-06-02 18:11 | ED.DCSUM_ITS ---
- ER Visit Summary Date of Service: 06/02/19 Chief Complaint: Headache and neck pain History of Present Illness: The patient is a [address] Gresham. He reports that 1 hour ago he had the abrupt onset of a pressure to the left side of his neck and posterior head. He reports the pain is so severe that it dropped into his knees. He did not pass out. Pain was 8 out of 10 at worst for 30 to 45 minutes. The pain has essentially resolved. Is now 1 out of 10 severity. Nothing seemed to make the pain better or worse. He denies any recent trauma. No fall, MVA, or change in activity. Review of system patient denies any fever, chills, chest pain, or shortness of breath. No abdominal pain, nausea, vomiting, or diarrhea. No rash. No numbness or weakness. Physical Examination: Vitals: Stable. Afebrile. General: Well-nourished and well-developed. Head: Normocephalic atraumatic. Neck: Supple, no lymphadenopathy. No JVD. Nontender. Cardiovascular: Regular rate and rhythm. No murmurs. Respiratory: No respiratory distress. Clear to auscultation bilaterally. Abdominal: Soft, nontender, nondistended, normal bowel sounds. No guarding, rebound, or peritoneal signs. Back: Nontender. Extremities: Nontender, no edema. Skin: Normal color, no rash. Neurologic: Alert and oriented ?3. Cranial nerves II through XII are intact. Normal strength and sensation. Psych: Normal affect. Test Results: CT head was normal. Emergency Department Course and Treatment: Patient refused pain medications. He is resting comfortably. Treatment Plan: Discussed the patient at this time I do not have an explanation for his symptoms. He will be discharged instructions follow-up his primary care physician 1 to 2 days for another exam. Return to the emergency department for any worsening symptoms. Disposition: To home in improved and stable condition. Impression: 1. Cephalgia. This note was generated with [employer]wl[employer]ing ??? dictation software. It may contain incorrect words, spelling, and punctuation that were not noted in review of the chart prior to signing ED Disposition - Plan for ED Patient: Disposition: Home or Assisted Living Instructions: HEADACHE, Unspecified Referrals: Antonio Fuchs MD [Primary Care Provider] - 1-2 Days if not improving
== END 2019-06-02 18:20 | disposition home or self-care (01) ==
LOC: ED 17:26
PROVIDERS: Emergency Provider Emergency Medicine; Family Provider Family Medicine; PCP Family Medicine
DX: R51 Headache (principal)
CPT/HCPCS: 70450; 99282

== ENCOUNTER 2019-12-27 19:41 | Emergency (ER) | payer MEDICAID, SELFPAY ==
[2019-12-27 19:42] VITALS: BP 132/81; PULSE 68; RESP 18; TEMP 36.8; O2SAT 98; BMI 21.1
--- NOTE | 2019-12-27 19:54 | RAD_ITS ---
STUDY: X-RAY - RIGHT HAND REASON FOR EXAM: Male, 24 years old. RGHT HAND PAIN AFTER PUNCHING A WALL TECHNIQUE: 3 view(s) of the hand. COMPARISON: None. FINDINGS: Normal radiocarpal articulation. Normal distal radioulnar joint. Normal visualized carpal bones. Normal carpal articulations Normal carpometacarpal articulation of the thumb. Normal second through fifth carpometacarpal joints. Normal metacarpi. Normal metacarpophalangeal joint of the thumb. Normal interphalangeal joint of the thumb. Normal proximal and distal phalanges of the thumb. Normal metacarpophalangeal joints of the second through fifth fingers. Normal proximal and distal interphalangeal joints of the second through fifth fingers. Normal phalanges of the second through fifth fingers. The soft tissue structures are unremarkable. RAD/Hand Min 3 Views IMPRESSION: Normal x-ray examination of the hand. Electronically Signed: Lupillo Willis MD at 20:05 EDT , Service support ,
--- NOTE | 2019-12-27 20:23 | ED.VIS.UPPEX ---
History of Present Illness Chief Complaint: Upper Extremity Injury Narrative: Patient presenting for evaluation secondary to an upper extremity injury. Patient reports that he became angry and he punched a wall and then a refrigerator injuring his right hand. He is right-hand dominant. Pain is moderate worse with palpation movement. He denies any numbness or weakness. Past Medical History - Allergies and Home Meds Allergies/Adverse Reactions: Allergies No Known Allergies Allergy (Verified 12/27/19 19:44) Primary Care Physician: Antonio Fuchs MD [Primary Care Provider] - As Needed Prior records reviewed: Yes Past Medical History: - - Anxiety Smoking Status: Never smoker Review of Systems General: Denies: Fever Respiratory: Denies: Cough Musculoskeletal: Reports: Swelling, Extremity Pain Neurological: Denies: Weakness, Parasthesia Physical Exam Vital Signs/Narrative: Vital Signs Temp Pulse Resp BP Pulse Ox 12/27/19 19:42 98.3 F 68 18 132/81 H 98 Right Hand: - - TTP and echymosis of the dorsum of the hand at the long digit MCP. Normal ROM. Normal Sensation. normal cap refill. General: Well nourished, Well developed Head: Normocephalic, Atraumatic Eyes: EOMI ENT: No Trauma Neck: Full ROM Cardiovascular: Regular rate Respiratory: No distress Skin: Normal color, No rash Neurological: Alert, Oriented x3 Diagnostic/Tx/Re-eval Clinical Impression(s) from Imaging Studies Hand X-Ray 12/27/19 19:54 IMPRESSION: Normal x-ray examination of the hand. Electronically Signed: Lupillo Willis MD at 20:05 EDT , Service support , - Medical Decision Making Patient presented with right hand injury. XR by my personal review as well as radiology negative for fracture. Pt was recommended conservative management measure for his hand contusion. ED Disposition - Plan for ED Patient: Disposition: Home or Assisted Living Diagnosis: Contusion of right hand Instructions: ED HAND CONTUSION Referrals: Antonio Fuchs MD [Primary Care Provider] - As Needed
== END 2019-12-27 20:50 | disposition home or self-care (01) ==
PROVIDERS: Emergency Provider Emergency Medicine; PCP Family Medicine
DX: S60.221A Contusion of right hand, initial encounter (principal); X58.XXXA Exposure to other specified factors, initial encounter
CPT/HCPCS: 73130; 99282

== ENCOUNTER 2020-02-13 22:48 | Emergency (ER) | payer MEDICAID, SELFPAY ==
[2020-02-13 22:48] VITALS: BP 146/90; PULSE 69; RESP 16; TEMP 36.5; O2SAT 98; BMI 20.7
--- NOTE | 2020-02-13 23:01 | ED.DCSUM_ITS ---
History of Present Illness Chief Complaint: Fever Informant: Patient Narrative: Stated he has had a mild sore throat mild cough and fever. The fevers are started 3 days ago he is stated he was 101 on Tuesday. He has not had a fever today. He is been using ibuprofen intermittently. No coronavirus exposures. Current severity is mild. Denies any shortness of breath or other coronavirus symptoms. - Past Medical History (1) Dysesthesia of scalp Status: Chronic (2) Localized swelling, mass and lump, head Status: Chronic Comment: 12 mm soft tissue mass right parietal scalp (3) Trichilemmal cyst Status: Chronic Comment: 12 mm trichilemmal cyst right parietal scalp Past Medical History - Allergies and Home Meds Allergies/Adverse Reactions: Allergies No Known Allergies Allergy (Verified 02/13/20 22:51) Primary Care Physician: Antonio Fuchs MD [Primary Care Provider] - Prior records reviewed: Yes Past Medical History: - - See problem list Surgical History: noncontributory Alcohol: None Drugs: None Review of Systems General: Reports: Fever. Denies: Chills, Sweats Eyes: Denies: Visual changes - bilaterally, Diplopia ENT: Reports: Sore throat. Denies: Rhinorrhea Cardiovascular: Denies: Chest pain, Palpitations Respiratory: Reports: Cough. Denies: Dyspnea, Dyspnea on exertion Gastrointestinal: Denies: Abdominal pain, Nausea, Vomiting, Diarrhea, Melena, Hematochezia Genitourinary: Denies: Dysuria, Hematuria, Frequency Musculoskeletal: Denies: Back pain, Extremity Pain Skin: Denies: Rash, Wounds Neurological: Denies: Headache, Weakness, Numbness Physical Exam Vital Signs/Narrative: Vital Signs Temp Pulse Resp BP Pulse Ox 02/13/20 22:48 97.7 F L 69 16 146/90 H 98 General: Well nourished, Well developed, No Acute Distress Head: Normocephalic, Atraumatic Eyes: Perrl, EOMI ENT: Moist mucous membranes, No rhinorrhea Neck: Supple, Nontender Cardiovascular: Regular rate, Regular rhythm, No murmurs Respiratory: No distress, CTA bilaterally, Chest nontender Abdomen: Soft, Nontender, Nondistended, Normal bowel sounds Back: Nontender, Normal Inspection Extremities: Nontender, No edema Skin: Normal color, No rash Neurological: Alert, Oriented x3, Cranial nerves II-XII grossly intact, Normal Strength, Normal Sensation Psychological: Normal affect, Normal Mood Diagnostic/Tx/Re-eval - Medical Decision Making Patient may have coronavirus. At this time I do not feel he needs outpatient testing. He is well. Afebrile here. Will quarantine at home and follow-up as an outpatient and do symptomatic management. I do not feel he needs a chest x- ray. His lungs are clear and he is nontoxic ED Disposition - Plan for ED Patient: Disposition: Home or Assisted Living Diagnosis: Fever Instructions: ED FUO Adult Referrals: Antonio Fuchs MD [Primary Care Provider] -
== END 2020-02-13 23:11 | disposition home or self-care (01) ==
LOC: ED 23:08
PROVIDERS: Emergency Provider Emergency Medicine; PCP Family Medicine
DX: R50.9 Fever, unspecified (principal)
CPT/HCPCS: 99282

== ENCOUNTER → 2020-03-24 10:14 | Outpatient (CLI) | payer MEDICAID, SELFPAY ==
--- NOTE | 2020-03-24 10:17 | RAD_ITS ---
CLINICAL HISTORY: Male, 24 years old. Bladder dysfunction. PROCEDURE: Cystogram. FLUOROSCOPY TIME (if supplied): (23 seconds) minutes/seconds 150 mL of contrast installed into the bladder in a retrograde fashion through indwelling HOWARD catheter. The radiology installed the contrast into the bladder. TECHNIQUE: (All elements of maximal sterile barrier technique followed, including US elements as applicable) The bladder was filled with 750 mL of CYSTOGRAFIN. The bladder is unremarkable. No postvoid residual is seen. RAD/Cystography min 3 Views IMPRESSION: Unremarkable cystogram. Electronically Signed: Farshad Horton, at 11:41 EDT , Service support ,
--- NOTE | 2020-03-24 11:29 | NURSING ---
HOWARD CATHETER DISCONTINUED WITHOUT DIFFICULTY. 10 ML BALLOON DEFLATED. PT TOLERATED WELL.
== END ==
PROVIDERS: PCP Family Medicine; Referring Provider Family Medicine; Visit Provider Family Medicine
DX: N32.9 Bladder disorder, unspecified (principal); N32.89 Other specified disorders of bladder; R10.12 Left upper quadrant pain
CPT/HCPCS: 51600; 51702; 74430; Q9965

== ENCOUNTER 2020-06-15 17:38 | Emergency (ER) | payer MEDICAID, SELFPAY ==
[2020-06-15 17:39] VITALS: BP 134/68; PULSE 76; RESP 16; TEMP 36.4; O2SAT 99; BMI 21.4
--- NOTE | 2020-06-15 18:11 | ED.DCSUM_ITS ---
History of Present Illness Chief Complaint: Dental Informant: Patient Onset: Days Context: Gradual Onset Timing: Continuous Narrative: Patient is a 24-year-old male that denies any significant past medical history presenting with right lower dental pain. Patient states about 5 days ago he cracked a filling. He has had pain since. Last night he was eating and felt a piece of food was stuck in that tooth and is caused worsening pain. He states he was up all night because of the pain and this caused him to sleep through his alarm today and missed work. He is not taking anything for pain such as ibuprofen or Tylenol. He has a dentist in [place] but states he is having a hard time getting out there. He denies any difficulty swallowing. No fever or chills. No other complaints at this time. Past Medical History - Allergies and Home Meds Allergies/Adverse Reactions: Allergies No Known Allergies Allergy (Verified 06/15/20 17:40) Primary Care Physician: Antonio Fuchs MD [Primary Care Provider] - Corie Camarena [NON-STAFF] - Past Medical History: None Surgical History: noncontributory Smoking Status: Never smoker Review of Systems General: Denies: Chills, Fever, Sweats Eyes: Denies: Visual changes - bilaterally, Diplopia ENT: Reports: - - right lower dental pain . Denies: Rhinorrhea, Sore throat Cardiovascular: Denies: Chest pain, Palpitations Respiratory: Denies: Dyspnea, Cough, Dyspnea on exertion Gastrointestinal: Denies: Abdominal pain, Nausea, Vomiting Musculoskeletal: Denies: Back pain, Extremity Pain Skin: Denies: Rash, Wounds Neurological: Denies: Headache, Weakness, Numbness Physical Exam Vital Signs/Narrative: Vital Signs Temp Pulse Resp BP Pulse Ox 06/15/20 17:39 97.6 F L 76 16 134/68 H 99 Inital Vital Signs reviewed: Yes General: Well nourished, Well developed Head: Normocephalic, Atraumatic ENT: Moist mucous membranes, No rhinorrhea, TM's clear Mouth/Throat: Normal inspection lips/gums, Normal oral mucosa, No dental tenderness, No focal abscess, Normal posterior oropharynx, No sublingual edema, Filling loss - right 2nd lower molar . Negative for: Focal gum swelling, Tenderness on tooth percussion, Trismus Neck: Supple, No lymphadenopathy, Nontender, No JVD Cardiovascular: Regular rate, Regular rhythm, No murmurs Respiratory: No distress, CTA bilaterally Abdomen: Soft, Nontender Skin: Normal color, No rash Neurological: Alert, Oriented x3, Cranial nerves II-XII grossly intact, Normal Strength, Normal Sensation Psychological: Normal affect Diagnostic/Tx/Re-eval - Medical Decision Making Patient is evaluated for 1 week of worsening right lower dental pain. He has a cracked filling. I am not able to reproduce the pain with palpation but he points to the tooth that hurts. No obvious signs of abscess. No trismus. He is handling his secretions well. He is offered a dental block but declines. Patient be given Motrin and started on penicillin for pain control. He is given referral for the local dental clinics. Patient is counseled on signs and symptoms requiring return to the emergency room. Patient verbalizes agreement and understand this plan. Patient discharged home in stable and improved condition. ED Disposition - Plan for ED Patient: Disposition: Home or Assisted Living Diagnosis: Dentalgia Instructions: ED Tooth Pain Prescriptions: Ibuprofen [Motrin] 600 mg PO Q6H PRN PRN #20 tab PRN Reason: Pain Score 1-10/10 Transmission Status: Received by [facility] Penicillin V Potassium 500 mg PO 4X/DAY #40 tab Transmission Status: Received by [facility] Referrals: Antonio Fuchs MD [Primary Care Provider] - Corie Camarena [NON-STAFF] -
[2020-06-15 18:18] VITALS: RESP 15
[2020-06-15] MEDS: Ibuprofen 600 MG Tablet PO (18:18)
[2020-06-15] MEDS: Penicillin Vk 250 MG Tablet 500 MG PO (18:18)
== END 2020-06-15 18:22 | disposition home or self-care (01) ==
PROVIDERS: Emergency Provider Emergency Medicine; PCP Family Medicine
DX: K08.89 Other specified disorders of teeth and supporting structures (principal)
CPT/HCPCS: 99283

== ENCOUNTER 2020-10-11 17:58 | Emergency (ER) | payer MEDICAID, SELFPAY ==
[2020-10-11 17:58] VITALS: BP 146/72; PULSE 79; RESP 18; TEMP 36.6; O2SAT 100; BMI 21.4
--- NOTE | 2020-10-11 18:01 | EKG12_ITS ---
Test Reason : DYSRHYTHMIA Blood Pressure : / mmHG Vent. Rate : 070 BPM Atrial Rate : 070 BPM P-R Int : 190 ms QRS Dur : 098 ms QT Int : 362 ms P-R-T Axes : 027 041 039 degrees QTc Int : 390 ms Normal sinus rhythm Normal ECG Confirmed by MAURO LAOBY, KJ ([id number]), restaurant expeditor BABS MARTINES ([id number]) on 10/13/2020 10:08:35 AM Referred By: Confirmed By:KJ WADE MD
--- NOTE | 2020-10-11 18:14 | ED.VIS.GEN ---
History of Present Illness Chief Complaint: Syncope Informant: Patient, Significant Other Narrative: 25-year-old male presents the emergency department following a syncopal episode at work. He tells me that his allergies were acting up before work so he took a Benadryl. While at work he began to experience nausea, sweating, ringing in his ears, and lightheadedness. He felt like he was going to vomit so he went to the bathroom but on the way he states he had a syncopal episode and woke up on the floor. His employer states that he hit his head on the machine on the way down. It was reported to him that he tripped over a trash can hit two other workers in a coffee machine on his way down to the ground. Patient does note a headache but no significant neck pain or any other injuries. No lacerations or hematomas noted. He states he is otherwise feeling better. He had a syncopal episode many years ago but has otherwise been doing well. No known cardiac issues. Past Medical History - Allergies and Home Meds Allergies/Adverse Reactions: Allergies No Known Allergies Allergy (Verified 10/11/20 18:01) Primary Care Physician: Antonio Fuchs MD [Primary Care Provider] - As Needed Past Medical History: - - Seasonal allergies Surgical History: noncontributory Lives: Spouse/ Significant Other Smoking Status: Never smoker Drugs: None Review of Systems General: Denies: Chills, Fever, Sweats Eyes: Denies: Visual changes - bilaterally, Diplopia ENT: Denies: Rhinorrhea, Sore throat Cardiovascular: Denies: Chest pain, Palpitations Respiratory: Denies: Dyspnea, Cough, Dyspnea on exertion Gastrointestinal: Denies: Abdominal pain, Nausea, Vomiting, Diarrhea, Melena, Hematochezia Genitourinary: Denies: Dysuria, Hematuria, Frequency Musculoskeletal: Denies: Back pain, Extremity Pain Skin: Denies: Rash, Wounds Neurological: Reports: Headache. Denies: Weakness, Numbness Physical Exam Vital Signs/Narrative: Vital Signs Temp Pulse Resp BP Pulse Ox 10/11/20 17:58 97.9 F 79 18 146/72 H 100 Inital Vital Signs reviewed: Yes General: Well nourished, Well developed, No Acute Distress Head: Normocephalic, Atraumatic Eyes: Perrl, EOMI ENT: Moist mucous membranes, No rhinorrhea Neck: Supple, Nontender Cardiovascular: Regular rate, Regular rhythm, No murmurs Respiratory: No distress, CTA bilaterally, Chest nontender Abdomen: Soft, Nontender, Nondistended, Normal bowel sounds Back: Nontender, Normal Inspection Extremities: Nontender, No edema Skin: Normal color, No rash Neurological: Alert, Oriented x3, Cranial nerves II-XII grossly intact, Normal Strength, Normal Sensation Psychological: Normal affect, Normal Mood Diagnostic/Tx/Re-eval - EKG Initial EKG Interpretation: Sinus Rhythm - EKG demonstrated a normal sinus rhythm at a rate of 70 without concerning features of ACS or ectopy. - Medical Decision Making Patient's EKG shows a normal sinus rhythm with no concerning features of ACS. I do not see any preexcitation or prolonged QT. He was observed on the monitors had no events. At this point I believe the patient had a vasovagal episode. He did hit his head on a coffee machine has no outward signs of trauma. He does note a headache. I do not feel strongly that CT imaging is required. Patient was given return instructions for head injury. ED Disposition - Plan for ED Patient: Disposition: Home or Assisted Living Diagnosis: Vasovagal syncope, Head injury, Headache Instructions: ED Head Injury (Adult), ED Fainting, Vagal Reaction Referrals: Antonio Fuchs MD [Primary Care Provider] - As Needed
[2020-10-11 18:50] VITALS: PULSE 71; RESP 16
== END 2020-10-11 18:51 | disposition home or self-care (01) ==
LOC: ED 18:30
PROVIDERS: Emergency Provider Emergency Medicine; PCP Family Medicine
DX: R55 Syncope and collapse (principal); S09.90XA Unspecified injury of head, initial encounter; R51.9 Headache, unspecified; W01.0XXA Fall on same level from slipping, tripping and stumbling without subsequent striking against object, initial encounter
CPT/HCPCS: 93005; 99283

== ENCOUNTER 2021-04-28 16:12 | Emergency (ER) | payer MEDICAID, SELFPAY ==
[2021-04-28 16:12] VITALS: BP 114/98; PULSE 67; RESP 18; TEMP 36.2; O2SAT 98
[2021-04-28] MEDS: Mag Hydrox/Al Hydrox/Simeth 30 ML UDC PO (18:04)
[2021-04-28] MEDS: Ondansetron ODT 4 MG Tablet PO (18:04)
--- NOTE | 2021-04-28 19:05 | EDS_ITS ---
HPI HPI - GI History of Present Illness Chief Complaint: Abd Pain Narrative Narrative: Patient presenting for evaluation secondary to abdominal pain nausea vomiting and some hematemesis. Patient states that he has been frequently taking NSAIDs recently secondary to a dental surgery. Patient states that he woke up today and was having forceful emesis with multiple dry heaves and became concerned when there is started to be some blood streaks. States that he has been dealing with some epigastric abdominal pain. He denies any diarrhea. Denies any black tarry stools. Denies any fever associated with it. Patient's never had any prior abdominal surgeries. Patient's not frequent alcohol user, review of systems otherwise negative. PFSH PFSH Medical History Anxiety and depression Back problem Frequent headaches GERD (gastroesophageal reflux disease) Home Medications omeprazole 40 mg PO DAILY #30 cap 04/28/21 [Rx Last Taken Unknown] ondansetron 4 mg PO Q8H PRN PRN #10 tab 04/28/21 [Rx Last Taken Unknown] Allergy/AdvReac Type Severity Reaction Status Date / Time No Known Allergies Allergy Verified 04/28/21 16:15 Family History Mother Anxiety and depression Grandmother Cancer Father Depression (emotion) Sister Diabetes Surgical History History of appendectomy Social History Smoking Status: Never smoker alcohol intake: never substance use type: does not use additional social history: DOES NOT USE ASPIRIN DOES NOT USE IBUPROFEN ROS ROS ED Constitutional Constitutional ED: Denies chills or fever(s) ENT ENT ED: Denies sore throat Cardiovascular Cardiovascular: Denies chest pain Respiratory/Chest Respiratory/Chest: Denies cough or dyspnea Gastrointestinal Gastrointestinal: Reports abdominal pain, nausea and vomiting Genitourinary Genitourinary ED: Denies dysuria, hematuria or urinary frequency Musculoskeletal Musculoskeletal: Denies myalgias Integumentary Denies rash Neurologic Neurologic: Denies paresthesias or weakness Psychiatric Psychiatric: Denies depression Endocrine Endocrinology: Denies polyuria Hematologic/Lymphatic Hematologic/Lymphatic: Denies easy bleeding or easy bruising Allergic/Immunologic Allergic/Immunologic ED: Denies urticaria EXAM Physical Exam Const Vital Signs: 04/28/21 16:12 Temperature 97.1 F L Temperature Source Temporal Pulse Rate 67 Respiratory Rate 18 Blood Pressure 114/98 H Blood Pressure Mean 103 Pulse Ox 98 Oxygen Delivery Method Room Air Positive well nourished and well developed General Appearance ED: well developed and NAD HEENT normocephalic and atraumatic Eyes EOMs intact bilaterally General Eye ED: Negative for pale conjunctiva or scleral icterus Neck no lymphadenopathy and supple Resp normal respiratory effort and clear to auscultation bilaterally Resp Narrative: No signs of subcutaneous emphysema palpation of the chest Cardio regular rate, regular rhythm, no murmurs and peripheral pulses 2+ throughout Cardio Narrative: No signs of Ciara's crunch GI non-distended and no masses GI Narrative: Very minimal epigastric pain Palpation: soft; Negative for guarding, rigid or rebound tenderness present Back/Spine no CVA tenderness Extremity full ROM General Extremety ED: Negative for edema General Extremity: Negative for edema Neuro moves all extremities and no sensory deficits noted Sensorium / Orientation: alert, oriented to person, oriented to place and oriented to time Motor Exam: strength 5/5 throughout Psych mental status grossly normal Skin Rashes: no rashes MDM MDM MDM Narrative Medical decision making narrative: Patient presented with nausea vomiting and streaks of blood. Has been frequently taking NSAIDs, potentially has an element of gastritis secondary to this. The vomiting today potentially caused a Marika-Najera tear. He has a benign physical exam and not concern for Boerhaave syndrome, pancreatitis, or other etiology that requires work-up or imaging. Patient was given a GI cocktail and Zofran and had improvement on repeat evalu ation he will be discharged with a course of omeprazole and Zofran. To follow- up with primary care. Discharge Plan Triage Chief Complaint: Abd Pain ED Provider: Chele Long Dx/Rx/DC Orders Clinical Impression: Marika-Najera tear, Gastritis Instructions: Marika-Najera Tear, ED Gastritis (Adult) Prescriptions: New omeprazole 40 mg capsule,delayed release(DR/EC) 40 mg PO DAILY Qty: 30 RF: 0 ondansetron 4 mg tablet,disintegrating 4 mg PO Q8H PRN PRN (Reason: Nausea) Qty: 10 RF: 0 Primary Care Provider: Antonio Fuchs Referrals: Antonio Fuchs MD [Primary Care Provider] - Disposition Disposition: Home, Self Care
[2021-04-28 19:21] VITALS: RESP 16
== END 2021-04-28 19:22 | disposition home or self-care (01) ==
PROVIDERS: Emergency Provider Emergency Medicine; PCP Family Medicine
DX: K22.6 Gastro-esophageal laceration-hemorrhage syndrome (principal); K29.70 Gastritis, unspecified, without bleeding
CPT/HCPCS: 99283

== ENCOUNTER 2022-04-04 18:32 | Emergency (ER) | payer MEDICAID, SELFPAY ==
[2022-04-04 18:34] VITALS: BP 146/97; PULSE 74; RESP 16; TEMP 35.9; O2SAT 97; BMI 22.7
[2022-04-04 18:36] VITALS: BP 146/97; PULSE 71; RESP 18; TEMP 35.9; O2SAT 97
--- NOTE | 2022-04-04 18:54 | EX.ED.UPPERE ---
HPI History of Present Illness Chief Complaint: Upper Extremity Injury Informant: patient Onset/Context/Timing Onset: Yesterday Current Severity: Mild Maximum Severity: Mild Narrative Narrative: Patient presents secondary to right shoulder pain. Patient states he was doing some boxing training last night and felt 2 small pops in his right shoulder. He is right-hand dominant. He has had some intermittent paresthesias over the shoulder blade. No paresthesias in his arm. He took Tylenol this morning. PFSH PFSH Medical History Anxiety and depression Back problem Frequent headaches GERD (gastroesophageal reflux disease) Home Medications omeprazole 40 mg capsule,delayed release 40 mg PO DAILY #30 caps 04/28/21 [Rx Last Taken Unknown] ondansetron 4 mg disintegrating tablet 4 mg PO Q8H PRN PRN Nausea #10 tabs 04/28/21 [Rx Last Taken Unknown] naproxen 500 mg tablet (Naprosyn) 500 mg PO BID PRN pain #20 tabs 04/04/22 [Rx Last Taken Unknown] Allergy/AdvReac Type Severity Reaction Status Date / Time diphenhydramine AdvReac NEEDS Verified 04/04/22 18:37 [From Benadryl] FOLLOW-UP Family History Mother Anxiety and depression Grandmother Cancer Father Depression (emotion) Sister Diabetes Surgical History History of appendectomy Social History Smoking Status: Never smoker alcohol intake: never substance use type: does not use additional social history: DOES NOT USE ASPIRIN DOES NOT USE IBUPROFEN ROS ROS ED Constitutional Constitutional ED: Denies chills or fever(s) Eyes Eyes: Denies change in vision or discharge from eye(s) ENT ENT ED: Denies discharge from eye(s), rhinorrhea or sore throat Cardiovascular Cardiovascular: Denies chest pain or palpitations Respiratory/Chest Respiratory/Chest: Denies cough or dyspnea Gastrointestinal Gastrointestinal: Denies abdominal pain, diarrhea, nausea or vomiting Genitourinary Genitourinary ED: Denies difficulty urinating or dysuria Musculoskeletal Musculoskeletal: Reports extremity pain; Denies back pain Integumentary Denies Abrasions or rash Neurologic Neurologic: Reports paresthesias; Denies headache(s) or weakness Psychiatric Psychiatric: Denies anxiety or depression Allergic/Immunologic Allergic/Immunologic ED: Denies lip swelling or urticaria EXAM Physical Exam Const Vital Signs: 04/04/22 18:34 04/04/22 18:36 Temperature 96.7 F L 96.7 F L Temperature Source Temporal Temporal Pulse Rate 74 71 Respiratory Rate 16 18 Blood Pressure 146/97 H 146/97 H Blood Pressure Mean 113 113 Pulse Ox 97 97 Oxygen Delivery Method Room Air Room Air Positive well nourished and well developed General Appearance ED: well developed HEENT Reports normocephalic and head/scalp atraumatic Eyes PERRL and EOMs intact bilaterally Neck supple Chest Wall inspection of chest normal and palpation of chest normal Resp normal respiratory effort and clear to auscultation bilaterally Cardio regular rate and regular rhythm GI normal to inspection, nondistended, normoactive bowel sounds Palpation: soft Extremity normal to inspection Neuro oriented x3 and no sensory deficits noted Sensorium / Orientation: alert Motor Exam: strength 5/5 throughout Psych mental status grossly normal Skin no rashes or lesions noted MDM MDM MDM Narrative Medical decision making narrative: Patient given naproxen and right shoulder x-rays ordered. Radiography Diagnostic Testing: Radiology Impression Shoulder X-Ray 04/04/22 18:57 IMPRESSION: Normal x-ray examination of the shoulder. Electronically Signed: Luis Obregon MD at 19:25 EDT , Treatment and Re-Evaluation Narrative: Right shoulder x-ray per my interpretation reveals no acute bony findings. Radiology interpretation is reviewed and agrees. Patient will be discharged with a prescription for naproxen. He will be given a sling and can come out of it 4 times daily to work on range of motion. He is given orthopedics referral if not improved in 1 week. Discharge Plan Triage Chief Complaint: Upper Extremity Injury ED Provider: Jackelin Franco Dx/Rx/DC Orders Clinical Impression: Sprain of right shoulder Instructions: ED Shoulder Sprain Prescriptions: New naproxen [Naprosyn] 500 mg tablet 500 mg PO BID PRN (Reason: pain) Qty: 20 0RF No Action omeprazole 40 mg capsule,delayed release(DR/EC) 40 mg PO DAILY Qty: 30 0RF ondansetron 4 mg tablet,disintegrating 4 mg PO Q8H PRN PRN (Reason: Nausea) Qty: 10 0RF Primary Care Provider: Antonio Fuchs Referrals: Antonio Fuchs MD [Primary Care Provider] - Chung Shetty MD [Med Staff - Active Staff] - 1 Week if not improving Activity Restrictions/Additional Instructions: Be sure to remove your sling least 4 times daily and work on range of motion so you do not develop shoulder tightness. You can use it just as needed while you are active to help protect her shoulder. Disposition Disposition: Home, Self Care
--- NOTE | 2022-04-04 18:57 | RAD_ITS ---
STUDY: X-RAY - RIGHT SHOULDER REASON FOR EXAM: Male, 26 years old. injury TECHNIQUE: 2 view(s) of the shoulder. COMPARISON: None. FINDINGS: Normal glenohumeral articulation. Normal acromioclavicular joint. Normal acromion. Normal humeral head and visualized proximal humerus. The soft tissue structures are unremarkable. Normal visualized pulmonary apex. RAD/Shoulder min 2 Views IMPRESSION: Normal x-ray examination of the shoulder. Electronically Signed: Luis Obregno MD at 19:25 EDT ,
[2022-04-04] MEDS: Naproxen 500 MG Tablet PO (19:06)
== END 2022-04-04 20:09 | disposition home or self-care (01) ==
PROVIDERS: Emergency Provider Emergency Medicine; PCP Family Medicine; Visit Provider Emergency Medicine
DX: S43.401A Unspecified sprain of right shoulder joint, initial encounter (principal); X58.XXXA Exposure to other specified factors, initial encounter; Y93.71 Activity, boxing
CPT/HCPCS: 73030; 99283

== ENCOUNTER 2022-12-03 17:37 | Emergency (ER) | payer MEDICAID, SELFPAY ==
[2022-12-03 17:38] VITALS: BP 130/64; PULSE 68; RESP 16; TEMP 36.7; O2SAT 97; BMI 21.9
--- NOTE | 2022-12-03 18:11 | EDS_ITS ---
HPI History of Present Illness Chief Complaint: Cough Informant: patient Narrative Narrative: 5-day onset sore throat cough. Tobacco history. Seen urgent care 3 days ago through [facility] strep COVID and flu negative. Sore throat improving. Cough increasing. No fevers. No vomiting diarrhea. Tolerating oral fluids. [facility] Medical History Anxiety and depression Back problem Frequent headaches GERD (gastroesophageal reflux disease)
--- NOTE | 2022-12-03 18:11 | ED.VIS.DYS ---
HPI History of Present Illness Chief Complaint: Cough Informant: patient Narrative Narrative: 5-day onset sore throat cough. Tobacco history. Seen urgent care 3 days ago through [facility] strep COVID and flu negative. Sore throat improving. Cough increasing. No fevers. No vomiting diarrhea. Tolerating oral fluids. [facility] Medical History Anxiety and depression Back problem Frequent headaches GERD (gastroesophageal reflux disease) Home Medications benzonatate 100 mg capsule 200 mg PO TID PRN PRN Cough #20 CAPSULES 12/03/22 [Rx Last Taken Unknown] omeprazole 40 mg capsule,delayed release 40 mg PO DAILY 12/03/22 [History Last Taken Unknown] Allergy/AdvReac Type Severity Reaction Status Date / Time diphenhydramine AdvReac NEEDS Verified 12/03/22 17:40 [From Benadryl] FOLLOW-UP Family History Mother Anxiety and depression Grandmother Cancer Father Depression (emotion) Sister Diabetes Surgical History History of appendectomy Social History Smoking Status: Never smoker alcohol intake: never substance use type: does not use additional social history: DOES NOT USE ASPIRIN DOES NOT USE IBUPROFEN ROS ROS ED Constitutional Constitutional ED: Denies chills, fever(s) or sweats Eyes Eyes: Denies change in vision ENT ENT ED: Denies dysphagia or sore throat Cardiovascular Cardiovascular: Denies chest pain, leg edema, palpitations or racing heartbeat Respiratory/Chest Respiratory/Chest: Reports cough and dyspnea; Denies dyspnea on exertion Gastrointestinal Gastrointestinal: Denies abdominal pain, diarrhea, nausea or vomiting Genitourinary Genitourinary ED: Denies dysuria, hematuria or urinary frequency Musculoskeletal Musculoskeletal: Denies back pain, extremity pain or neck pain Integumentary Denies rash or wounds Neurologic Neurologic: Denies headache(s), paresthesias or weakness EXAM Physical Exam Const Vital Signs: 12/03/22 17:38 12/03/22 18:35 Temperature 98.0 F Temperature Source Temporal Pulse Rate 68 Respiratory Rate 16 Respiratory Effort Normal Non-Labored Respiratory Depth Normal Respiratory Pattern Normal Blood Pressure 130/64 H Blood Pressure Mean 86 Pulse Ox 97 Oxygen Delivery Method Room Air Room Air Positive well nourished and well developed General Appearance ED: well developed and NAD HEENT Reports moist mucous membranes HEENT Narrative: No posterior pharyngeal erythema. Airway patent. normocephalic and atraumatic Eyes PERRL, EOMs intact bilaterally and conjunctivae normal General Eye ED: Yes normal appearance of both eyes Neck no lymphadenopathy and supple General: Negative for tenderness Chest Wall Chest: Negative for tenderness Resp normal respiratory effort and normal air movement Effort and Inspection: symmetric chest movement; Negative for respiratory distress Cardio regular rate, regular rhythm and no murmurs Peripheral Pulses: pulses 2+ throughout GI normal to inspection, nondistended, normoactive bowel sounds and non-tender Palpation: Negative for guarding or rebound tenderness present Back/Spine no CVA tenderness and no thoracic nor lumbar tenderness Extremity normal to inspection General Extremety ED: Negative for edema or tenderness General Extremity: Negative for edema Neuro oriented x3 and no sensory deficits noted Sensorium / Orientation: awake and alert Skin no rashes or lesions noted and no wounds MDM MDM MDM Narrative Medical decision making narrative: Interventions / MDM: Differential diagnosis: Viral syndrome, bronchitis Diagnosis considered but do not suspect: Pneumonia, no rales on lung exam. My EKG interpretation: N/A Imaging independently reviewed and interpreted by myself: N/A External documents reviewed: N/A Test considered but not ordered:N/A ED course: Vital stable nontoxic. 5 days onset of symptoms. Reported outpatient urgent care labs with COVID flu and upper negative. Discussed tobacco cessation. Discussed viral syndrome. Discussed adjunct therapies to help with cough. Also given additional prescription Tessalon Perles per his request try to help with symptoms. He will follow-up as an outpatient. Work note given. All questions were answered. Re-evaluation: stable Disposition discussed with patient/family/significant other: Patient Case discussed with consulting clinician: N/A Discharge Plan Triage Chief Complaint: Cough ED Provider: William Peterson Dx/Rx/DC Orders Clinical Impression: Bronchitis, Tobacco dependence Instructions: ED Bronchitis, No Antibiotic (Adult) Prescriptions: New benzonatate [benzonatate] 100 mg capsule 200 mg PO TID PRN PRN (Reason: Cough) Qty: 20 0RF No Action omeprazole 40 mg capsule,delayed release(DR/EC) 40 mg PO DAILY Label Comments: Take 1 capsule by mouth once daily. Stand Alone Forms: ED Work / School Excuse Primary Care Provider: Antonio Fuchs Referrals: Antonio Fuchs MD [Primary Care Provider] - 1 Week if not improving Disposition Disposition: Home, Self Care Discharge Date/Time: 12/03/22 18:35
== END 2022-12-03 18:35 | disposition home or self-care (01) ==
PROVIDERS: Emergency Provider Emergency Medicine; PCP Family Medicine; Referring Provider Emergency Medicine; Visit Provider Emergency Medicine
DX: J40 Bronchitis, not specified as acute or chronic (principal); K21.9 Gastro-esophageal reflux disease without esophagitis; Z79.899 Other long term (current) drug therapy
CPT/HCPCS: 99282

== ENCOUNTER 2023-03-06 10:53 | Emergency (ER) | payer SELFPAY ==
[2023-03-06 10:55] VITALS: BP 137/86; PULSE 85; RESP 12; TEMP 36.1; O2SAT 100; BMI 24.7
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
--- NOTE | 2023-03-06 11:30 | RAD_ITS ---
INDICATION: Neck pain. EXAMINATION/TECHNIQUE: X-RAY - XR Spine Cervical 2 or 3 Views COMPARISON: 05/08/2018 FINDINGS: VERTEBRAE: Preserved vertebral body height. No fracture. No spondylolisthesis. Preservation of the normal cervical lordosis. No significant facet arthropathy. DISCS: Disc spaces are maintained. NECK SOFT TISSUES: No prevertebral soft tissue widening. LUNG APICES: Clear. RAD/Cerv Spine 2 or 3 Views IMPRESSION: No evidence of acute fracture or spondylolisthesis. Electronically Signed: Pradeep James MD at 12:17 EDT ,
== END 2023-03-06 11:45 | disposition home or self-care (01) ==
PROVIDERS: Emergency Provider Emergency Medicine; PCP Family Medicine; Visit Provider Emergency Medicine
DX: R51.9 Headache, unspecified (principal); M54.2 Cervicalgia; G89.29 Other chronic pain
CPT/HCPCS: 72040; 99282

== ENCOUNTER 2024-03-11 21:51 | Emergency (ER) | payer SELFPAY ==
[2024-03-11 21:52] VITALS: BP 155/89; PULSE 85; RESP 16; TEMP 36.3; O2SAT 100; BMI 27.6
--- NOTE | 2024-03-11 22:27 | EX.ED.GUMALE ---
HPI History of Present Illness Chief Complaint: Male Pain/Injury Informant: patient and spouse/S.O. Narrative Narrative: Patient is a 28-year-old male with past medical history of anxiety with depression as well as GERD. He states roughly 2 days ago he was having intercourse with his significant other when they performed a different position. He states when this occurred he felt a small pop and then developed some pain and shortly after he lost his erection. He states that the first or second urination after this seemed dark or potentially bloody and since that time he has had pain and bruising to his penis. He reports that after the first or second urination that the urine has looked normal and he denies any blood or discharge from the urethra. However the penis has remained tender and bruised and with this he presents for evaluation [facility] Medical History GERD (gastroesophageal reflux disease) Frequent headaches Anxiety and depression Back problem Home Medications ?Medication ?Instructions ?Recorded ?Last Taken ?Type benzonatate 100 mg capsule 200 mg (2 x 100 mg) PO TID PRN PRN 12/03/22 Unknown Rx Cough #20 CAPSULES omeprazole 40 mg capsule,delayed 40 mg PO DAILY 12/03/22 Unknown History release oxycodone-acetaminophen 5 mg-325 1 tab PO Q6H PRN pain 3 days #12 03/11/24 Unknown Rx mg tablet (Percocet) tabs Allergy/AdvReac Type Severity Reaction Status Date / Time diphenhydramine (From AdvReac NEEDS Verified 03/11/24 21:52 Benadryl) FOLLOW-UP Family History Mother Anxiety and depression Grandmother Cancer Father Depression (emotion) Sister Diabetes Surgical History History of appendectomy Social History Smoking Status: Never smoker alcohol intake: never substance use type: does not use additional social history: DOES NOT USE ASPIRIN DOES NOT USE IBUPROFEN ROS ROS ED Constitutional Constitutional ED: Denies chills or fever(s) ENT ENT ED: Denies sore throat Cardiovascular Cardiovascular: Denies chest pain Respiratory/Chest Respiratory/Chest: Denies cough or dyspnea Gastrointestinal Gastrointestinal: Denies abdominal pain, diarrhea, nausea or vomiting Genitourinary Genitourinary ED: Reports other Details: Positive penile pain and penile bruising ; Denies dysuria or urinary frequency Musculoskeletal Musculoskeletal: Denies back pain or myalgias Integumentary Denies rash Neurologic Neurologic: Denies headache(s) Hematologic/Lymphatic Hematologic/Lymphatic: Denies easy bleeding or easy bruising EXAM Physical Exam Const Vital Signs: 03/11/24 21:52 Temperature 97.3 F L Temperature Source Temporal Pulse Rate 85 Respiratory Rate 16 Blood Pressure 155/89 H Blood Pressure Mean 111 Pulse Ox 100 Oxygen Delivery Method Room Air Positive well nourished and well developed General Appearance ED: well developed HEENT HEENT Narrative: Normocephalic atraumatic Eyes PERRL and EOMs intact bilaterally Neck supple Resp normal respiratory effort and clear to auscultation bilaterally Cardio regular rate and regular rhythm GI non-tender, non-distended and no masses Auscultation: normoactive bowel sounds Palpation: soft Narrative: Normal circumcised male without blood or discharge from the urethral meatus. There is a small amount of ecchymosis roughly 1 x 1 cm in size along the dorsal aspect of the left mid penile shaft which correlates with the patient's report of pain and injury most likely secondary to a simple penile fracture. There is no testicular swelling or masses noted. No overlying soft tissue changes to suggest Jeremy's gangrene. No hernia noted. Back/Spine no CVA tenderness Extremity normal to inspection Neuro oriented x3, CN's II-XII intact bilaterally, moves all extremities, no focal motor deficits and no sensory deficits noted Sensorium / Orientation: alert Motor Exam: strength 5/5 throughout Psych mental status grossly normal Skin no rashes or lesions noted Skin Narrative: Soft tissue changes of mild swelling and ecchymosis along the penile shaft as documented above MDM MDM MDM Narrative Medical decision making narrative: Patient arrived to ER hypertensive otherwise with stable vitals. He reported injury to his penis roughly 48 hours prior to arrival. He states initially there was dark discoloration of the urine which she was concerned for blood but since that initial event urine has appeared normal. Differential diagnosis is for penile fracture versus urethral injury versus UTI or kidney stone. The patient does not have flank pain and based on his history of low concern for kidney stone. There is also low concern for UTI but a urine sample was performed and shows no sign of infection or blood. Without blood in the urine sample and without signs of fracture to the skin surface this would indicate the patient has a simple penile fracture of the corpus cavernosum. There would be no urethral injury and therefore there is no need for emergent urology consultation especially as the patient is roughly 48 hours from the time of injury. He will be instructed on symptomatic care and given urology to follow-up with an outpatient basis to ensure there is no need for further testing or treatment options. History & Record Review Discussion w/independent historian: Patient and Significant other Lab Data Labs: Laboratory Results - last 24 hr 03/11/24 22:24 Urine Color Straw Urine Clarity Clear Urine pH 6.5 Ur Specific [place] 1.005 Urine Protein Negative Urine Glucose (UA) Normal Urine Ketones Negative Urine Occult Blood Negative Urine Nitrite Negative Urine Bilirubin Negative Urine Urobilinogen Normal Ur Leukocyte Esterase Negative Urine RBC 0 SEEN Urine WBC 0 SEEN Ur Squamous Epith Cells 0 SEEN Urine Bacteria 0 SEEN Urine Mucus 0 SEEN Discharge Plan Triage Chief Complaint: Male Pain/Injury ED Provider: Familia Medina Dx/Rx/DC Orders Clinical Impression: Penile fracture, GERD (gastroesophageal reflux disease), Anxiety and depression Prescriptions: New oxycodone-acetaminophen [Percocet] 5-325 mg tablet 1 tab PO Q6H PRN (Reason: pain) 3 Days Qty: 12 0RF No Action omeprazole 40 mg capsule,delayed release(DR/EC) 40 mg PO DAILY Patient Comments: Take 1 capsule by mouth once daily. benzonatate [benzonatate] 100 mg capsule 200 mg PO TID PRN PRN (Reason: Cough) Qty: 20 0RF Primary Care Provider: Antonio Fuchs Referrals: Antonio Fuchs MD [Primary Care Provider] - Floyd Fitch MD [Med Staff - Active Staff] - Activity Restrictions/Additional Instructions: Please follow-up with urology for repeat evaluation and to discuss any further testing or treatment options. In the meantime use ice to help reduce pain and swelling refrain from sexual activity and return to the ER should you have any further concerns Print Language: [place] Disposition Disposition: Home, Self Care
[2024-03-11 22:30] LABS: Bacteria 0 SEEN /hpf (None Seen); Mucous, Urine 0 SEEN /hpf (<or=2+); Red Blood Cells-Urine 0 SEEN /hpf (0-5); Squamous Epithelial Cells - UA 0 SEEN /hpf (0-5); White Blood Cells 0 SEEN /hpf (0-5)
[2024-03-11 22:38] LABS: Color, Urine Straw (Yellow); Glucose, Dipstick Normal (Normal); Ketone-Dipstick Negative (Negative); Leukocyte Esterase-Dipstick Negative /ul (Negative); Nitrite-Dipstick Negative (Negative); Occult Blood-Urine Negative /ul (Negative); Protein-Dipstick Negative (Negative); Specific Gravity, Urine 1.005 (1.002-1.030); Urine Bilirubin Dipstick Negative (Negative); Urine Clarity Clear (Clear); Urine Urobilinogen Normal (Normal); Urine pH 6.5 (5.0 - 8.0)
[2024-03-11] MEDS: oxyCODONE 5 MG Tablet 10 MG PO (23:05)
[2024-03-11 23:15] VITALS: BP 120/68; PULSE 70; RESP 18; TEMP 36.6; O2SAT 100
== END 2024-03-11 23:16 | disposition home or self-care (01) ==
PROVIDERS: Emergency Provider Emergency Medicine; PCP Family Medicine; Visit Provider Emergency Medicine
DX: S39.840A Fracture of corpus cavernosum penis, initial encounter (principal); K21.9 Gastro-esophageal reflux disease without esophagitis; F41.9 Anxiety disorder, unspecified; F32.A Depression, unspecified; Y93.89 Activity, other specified; X58.XXXA Exposure to other specified factors, initial encounter
CPT/HCPCS: 81001; 99282